=== PATIENT | female | born 1960 | race African-American/Black ===

== ENCOUNTER → 2017-05-10 | Outpatient (CLI) | payer OTHER | END | disposition home or self-care (01) | LOC: KCIC MRI 13:18 | DX: S93.411A Sprain of calcaneofibular ligament of right ankle, initial encounter (principal); M76.61 Achilles tendinitis, right leg; R60.0 Localized edema; Z91.81 History of falling; X58.XXXA Exposure to other specified factors, initial encounter; Y93.89 Activity, other specified; Y92.89 Other specified places as the place of occurrence of the external cause; Y99.8 Other external cause status | CPT/HCPCS: 73721 ==